=== PATIENT | female | born 1945 | race Caucasian/White ===

== ENCOUNTER → 2016-10-27 | Outpatient (CLI) | payer MEDICARE, MEDICAID | END | disposition home or self-care (01) | LOC: CFH 10:01 | PROVIDERS: ATTEND Internal Medicine | DX: E04.1 Nontoxic single thyroid nodule (principal) | CPT/HCPCS: 76536 ==

== ENCOUNTER 2016-11-16 09:06 | Emergency (ER) | payer MEDICARE, MEDICAID ==
[~2016-11-16] VITALS: Ht 165.1 cm; Wt 126.6 kg
[2016-11-16] MEDS ORDERED: PHENAZOPYRIDINE 200 MG TABLET PO ONE (09:30)
[2016-11-16 09:55] LABS: ASPARTATE AMINO TRANSFERASE 16 U/L (15-37); BLOOD UREA NITROGEN 17 mg/dL (7-18)
[2016-11-16] MEDS ORDERED: PHENAZOPYRIDINE 200 MG TABLET ONE (10:19)
[2016-11-16 11:59] VITALS: BP 177/73
[2016-11-16] MEDS ORDERED: OMNIPAQUE 350 MG/ML, 100ML BOTTLE ONE (12:40)
[2016-11-16] MEDS ORDERED: FLUCONAZOLE 100 MG TABLET PO ONE (13:00)
== END 2016-11-16 13:46 | disposition home or self-care (01) ==
LOC: ED 13:40
DX: R30.0 Dysuria (principal); I10 Essential (primary) hypertension; Z90.710 Acquired absence of both cervix and uterus; Z98.51 Tubal ligation status
CPT/HCPCS: 36415; 74177; 80053; 81001; 85025; 99285; Q9967

== ENCOUNTER → 2017-03-07 | Outpatient (CLI) | payer MEDICARE, MEDICAID ==
[2017-03-07 08:15] LABS: PATH.CAST-FLAG NOT PRESENT; SPERM-FLAG NOT PRESENT; SRC-FLAG NOT PRESENT; XTAL-FLAG NOT PRESENT; YLC-FLAG NOT PRESENT
[2017-03-07 08:16] LABS: ASPARTATE AMINO TRANSFERASE 16 U/L (15-37); BLOOD UREA NITROGEN 21 mg/dL (7-18)
== END | disposition home or self-care (01) ==
LOC: LAB 07:42
PROVIDERS: ATTEND Internal Medicine
DX: E03.9 Hypothyroidism, unspecified (principal); E04.2 Nontoxic multinodular goiter; B35.1 Tinea unguium; E11.21 Type 2 diabetes mellitus with diabetic nephropathy; E55.9 Vitamin D deficiency, unspecified
CPT/HCPCS: 80053; 80061; 81001; 82306; 83036

== ENCOUNTER → 2017-04-13 | Outpatient (CLI) | payer MEDICARE, MEDICAID ==
[~2017-04-13] MED LIST: LIDOCAINE 1%, 20ML ONE
== END | disposition home or self-care (01) ==
LOC: RAD 12:15
PROVIDERS: ATTEND Internal Medicine Endocrinology, Diabetes & Metabolism
DX: E04.2 Nontoxic multinodular goiter (principal)
CPT/HCPCS: 76942; 88172; 88173; J3490

== ENCOUNTER → 2018-03-20 | Outpatient (CLI) | payer MEDICARE, MEDICAID | END | disposition home or self-care (01) | LOC: RAD 09:48 | PROVIDERS: ATTEND Internal Medicine | DX: R09.02 Hypoxemia (principal) | CPT/HCPCS: 71046 ==

== ENCOUNTER → 2018-04-13 | Outpatient (CLI) | payer MEDICARE, MEDICAID | END | disposition home or self-care (01) | LOC: CFH 10:15 | PROVIDERS: ATTEND Internal Medicine | DX: Z13.820 Encounter for screening for osteoporosis (principal); M85.88 Other specified disorders of bone density and structure, other site | CPT/HCPCS: 77080 ==

== ENCOUNTER → 2018-05-10 | Outpatient (CLI) | payer MEDICARE, MEDICAID | END | disposition home or self-care (01) | LOC: CFH 09:33 | PROVIDERS: ATTEND Internal Medicine | DX: E04.1 Nontoxic single thyroid nodule (principal) | CPT/HCPCS: 76536 ==

== ENCOUNTER → 2018-06-28 | Outpatient (CLI) | payer MEDICARE, MEDICAID ==
[~2018-06-28] MED LIST changes: -LIDOCAINE 1%, 20ML ONE; +LIDOCAINE-MPF 1%, 5ML ONE
== END | disposition home or self-care (01) ==
LOC: RAD 09:25
PROVIDERS: ATTEND Internal Medicine
DX: E04.1 Nontoxic single thyroid nodule (principal)
CPT/HCPCS: 10022; 76942; 88172; 88173

== ENCOUNTER 2019-07-03 06:18 | Day surgery (SDC) | payer MEDICARE, MEDICAID ==
[2019-07-01 16:18] LABS: BASOPHILS # (AUTO) 0.07 x10^3/uL (0-0.1); BASOPHILS % (AUTO) 1 % (0-1); EOSINOPHILS # (AUTO) 0.24 x10^3/uL (0-0.4); EOSINOPHILS % (AUTO) 2 % (1-7); LYMPHOCYTES # (AUTO) 2.07 x10^3/uL (1-3.4); LYMPHOCYTES % (AUTO) 18 % (22-44); MD NO; MEAN CORPUSCULAR HEMOGLOBIN 28.1 pg (27.0-34.8); MEAN CORPUSCULAR HGB CONC 31.6 g/dL (32.4-35.8); MEAN CORPUSCULAR VOLUME 88.7 fL (80-100); MEAN PLATELET VOLUME 7.5 fL (7.4-10.4); MONOCYTES # (AUTO) 0.72 x10^3/uL (0.2-0.8); MONOCYTES % (AUTO) 6 % (2-9); NEUTROPHILS # (AUTO) 8.29 x10^3/uL (1.8-6.8); NEUTROPHILS % (AUTO) 73 % (42-75); PLATELET COUNT 424 x10^3/uL (130-400); RED BLOOD COUNT 4.88 x10^6/uL (3.82-5.3); RED CELL DISTRIBUTION WIDTH 15.5 % (9.6-15.2)
[2019-07-01 16:27] LABS: ALANINE AMINOTRANSFERASE 20 U/L (12-78); ALBUMIN 3.6 g/dL (3.4-5.0); ANION GAP 7 mmol/L (5-15); CALCIUM 9.4 mg/dL (8.5-10.1); CHLORIDE 109 mmol/L (98-107); CREATININE 1.03 mg/dL (0.55-1.02)
[2019-07-01 16:30] LABS: ALKALINE PHOSPHATASE 133 U/L (45-117); BILIRUBIN,TOTAL 0.6 mg/dL (0.2-1.0); TOTAL PROTEIN 8.2 g/dL (6.4-8.2)
[~2019-07-03] VITALS: Ht 163.8 cm; Wt 128.0 kg
[~2019-07-03 06:18] MED LIST changes: +AMLO10TA8 PO; +LEVO75TA5 PO; -LIDOCAINE-MPF 1%, 5ML ONE; +METF500T17 PO; +METO-95 PO; +SPIR25TA5 PO; +atorvastatin PO; +vitamin D PO
[2019-07-03 06:58] VITALS: BP 186/73
[2019-07-03] MEDS ORDERED: LACTATED RINGERS 1,000 ML IV SCH (06:58)
[2019-07-03] MEDS ORDERED: ACETAMINOPHEN 325 MG TABLET PO PRN (07:30)
[2019-07-03] MEDS ORDERED: ONDANSETRON 2MG/ML, 2ML IV PRN (07:30)
[2019-07-03] MEDS ORDERED: hydrALAzine 20 MG/ML, 1ML IV PRN (07:30)
[2019-07-03] MEDS ORDERED: KETOROLAC 30 MG/1 ML IV PRN (07:30)
[2019-07-03] MEDS ORDERED: FENTANYL PF 100 MCG/2ML IV PRN (07:30)
[2019-07-03] MEDS ORDERED: PROPOFOL 10 MG/ML, 20ML ONE (07:38)
[2019-07-03] MEDS ORDERED: METOPROLOL 1 MG/ML, 5ML ONE (07:38)
== END 2019-07-03 09:05 | disposition home or self-care (01) ==
LOC: OUT 06:18
PROVIDERS: ATTEND Internal Medicine
DX: R19.5 Other fecal abnormalities (principal); K63.5 Polyp of colon; K57.30 Diverticulosis of large intestine without perforation or abscess without bleeding; J44.9 Chronic obstructive pulmonary disease, unspecified; G47.33 Obstructive sleep apnea (adult) (pediatric); E03.9 Hypothyroidism, unspecified; E11.9 Type 2 diabetes mellitus without complications; I10 Essential (primary) hypertension; E78.5 Hyperlipidemia, unspecified; E66.01 Morbid (severe) obesity due to excess calories; Z86.010 Personal history of colon polyps; Z99.81 Dependence on supplemental oxygen
CPT/HCPCS: 36415; 45378; 80053; 82962; 85025; 93005; J2704; J7120

== ENCOUNTER 2019-08-02 09:48 | Outpatient (CLI) | payer MEDICARE, MEDICAID | END 2019-08-02 23:59 | disposition home or self-care (01) | LOC: CFH 09:48 | PROVIDERS: ATTEND Internal Medicine | DX: N63.11 Unspecified lump in the right breast, upper outer quadrant (principal) | CPT/HCPCS: 76642; 77065; G0279; 77063 ==

== ENCOUNTER 2019-08-09 07:37 | Outpatient (CLI) | payer MEDICARE, MEDICAID ==
[2019-08-09] MEDS ORDERED: LIDOCAINE 1%, 20ML ONE (08:00)
[2019-08-09] MEDS ORDERED: LIDOCAINE 1%-EPI 1:100K, 20ML ONE (08:00)
[2019-08-09] MEDS ORDERED: SODIUM BICARBONATE 4.2%, 5ML ONE (08:00)
== END 2019-08-09 23:59 | disposition home or self-care (01) ==
LOC: CFH 07:37
PROVIDERS: ATTEND Internal Medicine
DX: N63.10 Unspecified lump in the right breast, unspecified quadrant (principal); C50.911 Malignant neoplasm of unspecified site of right female breast
CPT/HCPCS: 19083; 77065; 88305; 88341; 88342; 88360; J3490

== ENCOUNTER → 2019-09-12 | Outpatient (CLI) | payer MEDICARE, MEDICAID ==
[~2019-09-12] MED LIST changes: +LIDOCAINE 1%, 20ML ONE; +LIDOCAINE 1%-EPI 1:100K, 20ML ONE; +SODIUM BICARBONATE 4.2%, 5ML ONE
== END | disposition home or self-care (01) ==
LOC: CFH 09:55
PROVIDERS: ATTEND Surgery
DX: C50.411 Malignant neoplasm of upper-outer quadrant of right female breast (principal); E11.9 Type 2 diabetes mellitus without complications; E78.5 Hyperlipidemia, unspecified; E03.9 Hypothyroidism, unspecified; I10 Essential (primary) hypertension; Z17.0 Estrogen receptor positive status [ER+]; Z79.84 Long term (current) use of oral hypoglycemic drugs; Z79.890 Hormone replacement therapy; Z79.899 Other long term (current) drug therapy
CPT/HCPCS: 19285; 77065; J3490

== ENCOUNTER 2019-10-28 10:07 | Outpatient (CLI) | payer MEDICARE, MEDICAID ==
[~2019-10-28 10:07] MED LIST changes: -LIDOCAINE 1%, 20ML ONE; -LIDOCAINE 1%-EPI 1:100K, 20ML ONE; -SODIUM BICARBONATE 4.2%, 5ML ONE
[2019-10-28] MEDS ORDERED: LIDOCAINE-MPF 1%, 5ML ONE (10:40)
== END 2019-10-28 23:59 | disposition home or self-care (01) ==
LOC: RAD 10:07
PROVIDERS: ATTEND Surgery
DX: Z02.9 Encounter for administrative examinations, unspecified (principal)
CPT/HCPCS: 38792; A9541

== ENCOUNTER 2019-10-28 10:15 | Day surgery (SDC) | payer MEDICARE, MEDICAID ==
[~2019-10-28] VITALS: Ht 162.6 cm; Wt 126.3 kg
[2019-10-28 10:50] VITALS: BP 180/93
[2019-10-28] MEDS ORDERED: ISOSULFAN BLUE 10 MG/ML, 5ML IV ONE (10:54)
[2019-10-28] MEDS ORDERED: BUPIVACAINE/PF-EPI 0.5% 1:200K ONE (10:54)
[2019-10-28] MEDS ORDERED: LACTATED RINGERS 1,000 ML IV SCH ×2 (11:17→11:52)
[2019-10-28] MEDS ORDERED: CHLORHEXIDINE 15 ML UDC ONE (12:10)
[2019-10-28] MEDS ORDERED: MIDAZOLAM 1 MG/ML, 2ML ONE (12:18)
[2019-10-28] MEDS ORDERED: FENTANYL PF 250 MCG/5ML ONE (12:18)
[2019-10-28 12:33] LABS: ALBUMIN 3.4 g/dL (3.4-5.0); ANION GAP 4 mmol/L (5-15); CALCIUM 9.4 mg/dL (8.5-10.1); CHLORIDE 111 mmol/L (98-107)
[2019-10-28 12:37] LABS: ALANINE AMINOTRANSFERASE 18 U/L (12-78); ALKALINE PHOSPHATASE 139 U/L (45-117); BILIRUBIN,TOTAL 0.8 mg/dL (0.2-1.0); TOTAL PROTEIN 7.6 g/dL (6.4-8.2)
[2019-10-28] MEDS ORDERED: DEXAMETHASONE 4 MG/ML, 1ML ONE (13:15)
[2019-10-28] MEDS ORDERED: PROPOFOL 10 MG/ML, 20ML ONE (13:15)
[2019-10-28] MEDS ORDERED: ROCURONIUM 10 MG/ML,10ML ONE (13:15)
[2019-10-28] MEDS ORDERED: SUGAMMADEX 200 MG/2 ML IVPush ONE (13:15)
[2019-10-28] MEDS ORDERED: CEFAZOLIN 1,000 MG ONE (13:15)
[2019-10-28] MEDS ORDERED: ONDANSETRON 2MG/ML, 2ML ONE (13:15)
[2019-10-28] MEDS ORDERED: SUCCINYLCHOLINE 20 MG/ML, 10ML ONE (13:15)
[2019-10-28] MEDS ORDERED: HALOPERIDOL 5 MG/ML IV PRN (15:00)
[2019-10-28] MEDS ORDERED: DIAZEPAM 5 MG/ML, 2ML IVPush PRN (15:00)
[2019-10-28] MEDS ORDERED: ACETAMINOPHEN 325 MG TABLET PO PRN (15:00)
[2019-10-28] MEDS ORDERED: OXYcodone 5 MG/5 ML ORAL.SOL UDC PO PRN (15:00)
[2019-10-28] MEDS ORDERED: MIDAZOLAM 1 MG/ML, 2ML IV PRN (15:00)
[2019-10-28] MEDS ORDERED: PROMETHAZINE 12.5 MG SUPP PR PRN (15:00)
[2019-10-28] MEDS ORDERED: EPHEDRINE 50 MG/ML, 1ML IVPush PRN (15:00)
[2019-10-28] MEDS ORDERED: ALBUTEROL SULFATE 2.5 MG/3 ML NPPB PRN (15:00)
[2019-10-28] MEDS ORDERED: PROMETHAZINE 25 MG/ML, 1ML IV PRN (15:00)
[2019-10-28] MEDS ORDERED: ONDANSETRON 2MG/ML, 2ML IV PRN (15:00)
[2019-10-28] MEDS ORDERED: MEPERIDINE/PF 25MG/ML,1ML IVPush ONE (15:00)
[2019-10-28] MEDS ORDERED: LABETALOL 5MG/ML, 20ML IV PRN (15:00)
[2019-10-28] MEDS ORDERED: hydrALAzine 20 MG/ML, 1ML IV PRN (15:00)
[2019-10-28] MEDS ORDERED: ONDANSETRON ODT 8 MG PO PRN (15:00)
[2019-10-28] MEDS ORDERED: FENTANYL PF 100 MCG/2ML ONE (15:46)
[2019-10-28] MEDS ORDERED: HYDROmorphone 1 MG/ML, 1ML INJ ONE (15:46)
[2019-10-28] MEDS ORDERED: OXYcodone 5 MG/5 ML ORAL.SOL UDC ONE (15:47)
[2019-10-28] MEDS ORDERED: HALOPERIDOL 5 MG/ML ONE (15:56)
[2019-10-28] MEDS: FENTANYL PF 100 MCG/2ML IV PRN ×2 (15:56→16:16)
[2019-10-28] MEDS: HYDROmorphone 1 MG/ML, 1ML INJ IVPush PRN ×2 (16:11→16:18)
[2019-10-28] MEDS ORDERED: hydrALAzine 20 MG/ML, 1ML ONE (16:26)
[2019-10-28] MEDS ORDERED: HYDROcodone/APAP 5/325 TABLET PO PRN (20:00)
[2019-10-28] MEDS ORDERED: MORPHINE SULFATE 4 MG/ML, 1ML IVPush PRN (20:00)
== END 2019-10-28 22:23 | disposition home or self-care (01) ==
LOC: OR 10:15 → 4NE 19:28 → OR 22:23
PROVIDERS: ATTEND Surgery
DX: C50.411 Malignant neoplasm of upper-outer quadrant of right female breast (principal); N65.1 Disproportion of reconstructed breast; E11.9 Type 2 diabetes mellitus without complications; I10 Essential (primary) hypertension; E78.5 Hyperlipidemia, unspecified; E03.9 Hypothyroidism, unspecified; E66.01 Morbid (severe) obesity due to excess calories; Z17.0 Estrogen receptor positive status [ER+]; Z68.42 Body mass index [BMI] 45.0-49.9, adult; Z79.84 Long term (current) use of oral hypoglycemic drugs; Z79.890 Hormone replacement therapy; Z79.899 Other long term (current) drug therapy
CPT/HCPCS: 19301; 19318; 36415; 38525; 38792; 76098; 80053; 82962; 88305; 88307; 88341; 88342; 93005; A9541; C1729; J0330; J0360; J0690; J1100; J1170; J1630; J2250; J2405; J2704; J3010; J7120; G0378

== ENCOUNTER 2019-12-18 10:16 | Outpatient (CLI) | payer MEDICARE, MEDICAID ==
[2019-12-29] MEDS ORDERED: LEVO88TA4 PO (10:33)
[2019-12-29] MEDS ORDERED: METF10007 PO (14:04)
[2019-12-29] MEDS ORDERED: METO-95 PO ×2 (14:04)
[2019-12-29] MEDS ORDERED: DOXY100C2 PO (14:04)
[2019-12-29] MEDS ORDERED: AMOX-291 PO (14:04)
[2019-12-29] MEDS ORDERED: CARV12.52 PO ×2 (14:06)
[2019-12-29] MEDS ORDERED: INSU100I11 SQ-INSULIN (14:27)
[2019-12-31] MEDS ORDERED: ATOR-2 PO (11:48)
[2019-12-31] MEDS ORDERED: METO-95 PO (11:48)
[2019-12-31] MEDS ORDERED: LINE600T15 PO (11:54)
[2019-12-31] MEDS ORDERED: METF500T17 PO ×2 (11:54)
== END 2019-12-18 23:59 | disposition home or self-care (01) ==
LOC: CVU 10:16
PROVIDERS: ATTEND Internal Medicine Hematology & Oncology
DX: C50.111 Malignant neoplasm of central portion of right female breast (principal); I05.1 Rheumatic mitral insufficiency
CPT/HCPCS: 93306

== ENCOUNTER 2020-03-04 09:34 | Inpatient (IN) | payer MEDICARE, MEDICAID ==
[~2020-03-04] VITALS: Ht 162.6 cm; Wt 105.2 kg
[~2020-03-04 09:34] MED LIST changes: +AMOX-291 PO; +ATOR-2 PO; +CARV12.52 PO; +DOXY100C2 PO; +INSU100I11 SQ-INSULIN; +LEVO88TA4 PO; +LINE600T15 PO; +METF10007 PO
[2020-03-04] MEDS ORDERED: SODIUM CHLORIDE FLUSH 10ML SYR IVF ONE (10:00)
[2020-03-04] MEDS ORDERED: SODIUM CHLORIDE 0.9% 1,000ML IVBOLUS ONE (10:00)
--- NOTE | 2020-03-04 11:00 | NUR ---
PT VOMITED ONCE AT NIGHT AND HAS GENERAL MALIASE. STATES SHE GOT CHEMO MONDAY
[2020-03-04 11:09] LABS: MEAN CORPUSCULAR HEMOGLOBIN 28.5 pg (27.0-34.8); MEAN CORPUSCULAR HGB CONC 31.3 g/dL (32.4-35.8); MEAN CORPUSCULAR VOLUME 91.2 fL (80-100); MEAN PLATELET VOLUME 7.5 fL (7.4-10.4); PLATELET COUNT 471 x10^3/uL (130-400); RED BLOOD COUNT 4.18 x10^6/uL (3.82-5.3); RED CELL DISTRIBUTION WIDTH 19.9 % (9.6-15.2)
[2020-03-04 11:16] LABS: ALANINE AMINOTRANSFERASE 14 U/L (12-78); ALBUMIN 2.7 g/dL (3.4-5.0); ANION GAP 8 mmol/L (5-15); CALCIUM 9.4 mg/dL (8.5-10.1); CHLORIDE 108 mmol/L (98-107); CREATININE 0.81 mg/dL (0.55-1.02)
[2020-03-04 11:18] LABS: ALKALINE PHOSPHATASE 109 U/L (45-117); BILIRUBIN,TOTAL 0.8 mg/dL (0.2-1.0); TOTAL PROTEIN 7.3 g/dL (6.4-8.2)
--- NOTE | 2020-03-04 11:23 | NUR ---
CATH SPECIMEN URINE OBTAINED. FLUIDS CONTINUE TO INFUSE. PT RESTING WITH EYES CLOSED
[2020-03-04 11:25] LABS: BASOPHILS # (AUTO) 0.04 x10^3/uL (0-0.1); BASOPHILS % (AUTO) 0 % (0-1); EOSINOPHILS # (AUTO) 0.04 x10^3/uL (0-0.4); EOSINOPHILS % (AUTO) 0 % (1-7); LYMPHOCYTES # (AUTO) 0.88 x10^3/uL (1-3.4); LYMPHOCYTES % (AUTO) 7 % (22-44); MD SCAN; MONOCYTES # (AUTO) 0.82 x10^3/uL (0.2-0.8); MONOCYTES % (AUTO) 7 % (2-9); NEUTROPHILS # (AUTO) 10.63 x10^3/uL (1.8-6.8); NEUTROPHILS % (AUTO) 86 % (42-75)
[2020-03-04 11:45] LABS: MICROSCOPIC INDICATED
--- NOTE | 2020-03-04 13:16 | NUR ---
TASK RN: PT ABLE TO PASS PO CHALLENGE DRANK 90ML OF WATER. ASSISTED PT TO RESTROOM, + SOB WITH ACTIVITY, DESATURATED TO 85% RA. PLACED ON 3LNC, O2 SAT 95% NOW. FALL PRECAUTIONS IN PLACE.
--- NOTE | 2020-03-04 13:35 | NUR ---
AT BEDSIDE RE-EXAMINING PT. OXYGEN TURNED OFF AND PT O2 SATURATION 84-86 PERCENT WHILE AT REST. PLACED BACK ON OXGEN. ORDER FOR CTA BY
[2020-03-04] MEDS ORDERED: OMNIPAQUE 350 MG/ML, 100ML BOTTLE ONE (14:08)
--- NOTE | 2020-03-04 14:26 | NUR ---
TO CT VIA [facility]
[2020-03-04] MEDS ORDERED: APIXABAN 5 MG TABLET ONE (14:52)
--- NOTE | 2020-03-04 15:00 | NUR ---
HOSPITALIST AT BEDSIDE
[2020-03-04] MEDS ORDERED: LISI2.5T PO (15:02)
[2020-03-04] MEDS ORDERED: LABETALOL 5MG/ML, 20ML IVPush PRN (15:30)
[2020-03-04] MEDS ORDERED: LACTATED RINGERS 1,000 ML IV SCH (15:30)
[2020-03-04] MEDS ORDERED: MELATONIN 5 MG TABLET PO PRN (15:30)
[2020-03-04] MEDS ORDERED: DOCUSATE 100 MG CAPSULE PO PRN (15:30)
[2020-03-04] MEDS ORDERED: SODIUM CHLORIDE FLUSH 10ML SYR IVF PRN (15:30)
[2020-03-04] MEDS ORDERED: ONDANSETRON 2MG/ML, 2ML IVPush PRN (15:30)
[2020-03-04] MEDS ORDERED: hydrALAzine 20 MG/ML, 1ML IVPush PRN (15:30)
[2020-03-04] MEDS ORDERED: ACETAMINOPHEN 325 MG TABLET PO PRN (15:30)
--- NOTE | 2020-03-04 15:43 | NUR ---
REPORT TO MONIK MYERS
[2020-03-04] MEDS: INSULIN LISPRO 100 UNITS/ML, PEN SQ-INSULIN SCH ×2 (16:00→23:03)
[2020-03-04] MEDS ORDERED: APIXABAN 5 MG TABLET PO ONE (16:00)
[2020-03-04 16:16] LABS: FREE T4 (FREE THYROXINE) 1.18 ng/dL (0.76-1.46); TROPONIN I < 0.015 ng/mL (0.000-0.045)
[2020-03-04] MEDS ORDERED: SODIUM PHOSPHATE 20 MMOL in SODIUM CHLORIDE 0.9% 500 ML IV ONE (16:30)
[2020-03-04] MEDS ORDERED: MAGNESIUM SULFATE PMX 4GM/100M 100 ML IV ONE (16:30)
[2020-03-04] MEDS: CEFTRIAXONE PMX 1GM/50ML 50 ML IV SCH (16:45)
[2020-03-04] MEDS: METOPROLOL SUCCINATE 100 MG TAB.ER.24H PO SCH (16:52)
[2020-03-04] MEDS: LISINOPRIL 20 MG TABLET PO SCH (16:52)
[2020-03-04] MEDS: DOXYCYCLINE 100 MG in DEXTROSE 5% 250 ML IV SCH (18:00)
[2020-03-04 18:58] VITALS: BP 172/80
[2020-03-04] MEDS: APIXABAN 5 MG TABLET PO SCH (20:31)
[2020-03-04] MEDS ORDERED: LISINOPRIL 20 MG TABLET PO SCH (21:00)
[2020-03-04 22:08] LABS: TROPONIN I < 0.015 ng/mL (0.000-0.045)
[2020-03-04 23:07] VITALS: BP 160/74
[2020-03-05 01:37] VITALS: BP 174/74
[2020-03-05] MEDS: DOXYCYCLINE 100 MG in DEXTROSE 5% 250 ML IV SCH ×2 (03:26→14:54)
[2020-03-05 03:29] VITALS: BP 181/84
[2020-03-05 04:30] VITALS: BP 150/72
[2020-03-05 05:22] LABS: BASOPHILS # (AUTO) 0.03 x10^3/uL (0-0.1); BASOPHILS % (AUTO) 0 % (0-1); EOSINOPHILS # (AUTO) 0.09 x10^3/uL (0-0.4); EOSINOPHILS % (AUTO) 1 % (1-7); LYMPHOCYTES # (AUTO) 1.19 x10^3/uL (1-3.4); LYMPHOCYTES % (AUTO) 10 % (22-44); MD NO; MEAN CORPUSCULAR HEMOGLOBIN 28.7 pg (27.0-34.8); MEAN CORPUSCULAR HGB CONC 31.6 g/dL (32.4-35.8); MEAN CORPUSCULAR VOLUME 90.9 fL (80-100); MEAN PLATELET VOLUME 7.7 fL (7.4-10.4); MONOCYTES # (AUTO) 1.02 x10^3/uL (0.2-0.8); MONOCYTES % (AUTO) 9 % (2-9); NEUTROPHILS # (AUTO) 9.68 x10^3/uL (1.8-6.8); NEUTROPHILS % (AUTO) 81 % (42-75); PLATELET COUNT 453 x10^3/uL (130-400); RED BLOOD COUNT 3.85 x10^6/uL (3.82-5.3); RED CELL DISTRIBUTION WIDTH 19.7 % (9.6-15.2)
[2020-03-05 05:34] LABS: CHLORIDE 109 mmol/L (98-107)
[2020-03-05 05:41] LABS: ANION GAP 7 mmol/L (5-15); CALCIUM 8.1 mg/dL (8.5-10.1); CREATININE 0.73 mg/dL (0.55-1.02)
[2020-03-05] MEDS: INSULIN LISPRO 100 UNITS/ML, PEN SQ-INSULIN SCH ×4 (07:28→20:16)
[2020-03-05] MEDS: APIXABAN 5 MG TABLET PO SCH ×2 (08:05→20:17)
[2020-03-05] MEDS: PANTOPRAZOLE 40MG TABLET PO SCH (08:05)
[2020-03-05] MEDS: ATORVASTATIN 80 MG TABLET PO SCH (08:06)
[2020-03-05] MEDS: LEVOTHYROXINE 88 MCG TABLET PO SCH (08:06)
[2020-03-05] MEDS: AMLODIPINE 5 MG TABLET PO SCH ×2 (08:06→20:17)
[2020-03-05] MEDS: LISINOPRIL 20 MG TABLET PO SCH ×2 (08:06→20:17)
[2020-03-05] MEDS: METOPROLOL SUCCINATE 100 MG TAB.ER.24H PO SCH (08:06)
[2020-03-05 08:07] VITALS: BP 154/79
[2020-03-05] MEDS ORDERED: SPIRONOLACTONE 25 MG TABLET PO SCH (09:00)
[2020-03-05] MEDS ORDERED: METOPROLOL SUCCINATE 100 MG TAB.ER.24H PO SCH (09:00)
[2020-03-05 12:48] VITALS: BP 121/73
[2020-03-05] MEDS: CEFTRIAXONE PMX 1GM/50ML 50 ML IV SCH (16:12)
[2020-03-05 18:47] VITALS: BP 131/73
[2020-03-06 00:48] VITALS: BP 150/72
[2020-03-06] MEDS: DOXYCYCLINE 100 MG in DEXTROSE 5% 250 ML IV SCH (02:45)
[2020-03-06 06:16] LABS: BASOPHILS # (AUTO) 0.03 x10^3/uL (0-0.1); BASOPHILS % (AUTO) 0 % (0-1); EOSINOPHILS # (AUTO) 0.11 x10^3/uL (0-0.4); EOSINOPHILS % (AUTO) 1 % (1-7); LYMPHOCYTES # (AUTO) 2.15 x10^3/uL (1-3.4); LYMPHOCYTES % (AUTO) 19 % (22-44); MD NO; MEAN CORPUSCULAR HEMOGLOBIN 29.3 pg (27.0-34.8); MEAN CORPUSCULAR HGB CONC 32.2 g/dL (32.4-35.8); MEAN CORPUSCULAR VOLUME 90.8 fL (80-100); MEAN PLATELET VOLUME 7.8 fL (7.4-10.4); MONOCYTES # (AUTO) 1.14 x10^3/uL (0.2-0.8); MONOCYTES % (AUTO) 10 % (2-9); NEUTROPHILS # (AUTO) 7.87 x10^3/uL (1.8-6.8); NEUTROPHILS % (AUTO) 70 % (42-75); PLATELET COUNT 483 x10^3/uL (130-400); RED CELL DISTRIBUTION WIDTH 20.1 % (9.6-15.2)
[2020-03-06] MEDS: INSULIN LISPRO 100 UNITS/ML, PEN SQ-INSULIN SCH ×2 (07:29→11:24)
[2020-03-06 07:36] VITALS: BP 146/77
[2020-03-06] MEDS: LEVOTHYROXINE 88 MCG TABLET PO SCH (07:50)
[2020-03-06] MEDS: ATORVASTATIN 80 MG TABLET PO SCH (07:50)
[2020-03-06] MEDS: LISINOPRIL 20 MG TABLET PO SCH (07:50)
[2020-03-06] MEDS: APIXABAN 5 MG TABLET PO SCH (07:50)
[2020-03-06] MEDS: AMLODIPINE 5 MG TABLET PO SCH (07:50)
[2020-03-06] MEDS: PANTOPRAZOLE 40MG TABLET PO SCH (07:50)
[2020-03-06] MEDS: METOPROLOL SUCCINATE 100 MG TAB.ER.24H PO SCH (07:51)
[2020-03-06 08:01] VITALS: BP 127/72
[2020-03-06] MEDS ORDERED: AMLO-150 PO (08:29)
[2020-03-06] MEDS ORDERED: APIX5TAB PO ×2 (08:29)
[2020-03-06] MEDS ORDERED: DOXY100T23 PO (08:29)
[2020-03-06] MEDS ORDERED: AMOX1TAB61 PO (08:29)
[2020-03-06 12:56] VITALS: BP 135/81
[2020-03-06] MEDS ORDERED: AMOXICILLIN/CLAV 500-125MG TABLET ONE (13:36)
[2020-03-06] MEDS ORDERED: AMOXICILLIN/CLAV 500-125MG TABLET PO SCH (14:00)
== END 2020-03-06 15:44 | disposition home or self-care (01) | DRG 175 ==
LOC: ED 11:32 → SUATTDRO 14:35 → EDIP 15:16 → 4WST 15:56 → DCLOUNGE 03-06 15:36
PROVIDERS: ADMIT Hospitalist; ATTEND Hospitalist
DX: I26.99 Other pulmonary embolism without acute cor pulmonale (principal); J18.9 Pneumonia, unspecified organism; D68.59 Other primary thrombophilia; I50.30 Unspecified diastolic (congestive) heart failure; I27.20 Pulmonary hypertension, unspecified; R91.8 Other nonspecific abnormal finding of lung field; D72.829 Elevated white blood cell count, unspecified; R31.29 Other microscopic hematuria; C50.919 Malignant neoplasm of unspecified site of unspecified female breast; I11.0 Hypertensive heart disease with heart failure; E11.9 Type 2 diabetes mellitus without complications; E03.9 Hypothyroidism, unspecified; E78.5 Hyperlipidemia, unspecified; Z87.442 Personal history of urinary calculi; Z90.710 Acquired absence of both cervix and uterus; Z90.49 Acquired absence of other specified parts of digestive tract
CPT/HCPCS: 36415; 71045; 71275; 80048; 80053; 81001; 82962; 83690; 83735; 84100; 84145; 84439; 84443; 84484; 85025; 87040; 93005; 96360; G0378; J0696; J7060; Q9967; J0360; J1815; J3475; J7030; J7040; J7120

== ENCOUNTER → 2020-04-21 | Outpatient (CLI) | payer MEDICARE, MEDICAID ==
[~2020-04-21] MED LIST changes: +AMLO-150 PO; +AMOX1TAB61 PO; +APIX5TAB PO; +DOXY100T23 PO; +LISI2.5T PO; +OMNIPAQUE 350 MG/ML, 75ML BOTTLE ONE; +POTA20TA89 PO
== END | disposition home or self-care (01) ==
LOC: CFH 09:41
PROVIDERS: ATTEND Internal Medicine Hematology & Oncology
DX: C50.111 Malignant neoplasm of central portion of right female breast (principal); R91.8 Other nonspecific abnormal finding of lung field; Z79.899 Other long term (current) drug therapy
CPT/HCPCS: 71260; Q9967

== ENCOUNTER → 2020-06-26 | Outpatient (CLI) | payer MEDICARE, MEDICAID ==
[~2020-06-26] MED LIST changes: +AMLO-211 PO; -AMLO10TA8 PO; -OMNIPAQUE 350 MG/ML, 75ML BOTTLE ONE
== END | disposition home or self-care (01) ==
LOC: ROC 07:53
PROVIDERS: ATTEND Radiology Radiation Oncology
DX: C50.211 Malignant neoplasm of upper-inner quadrant of right female breast (principal); E78.5 Hyperlipidemia, unspecified; E03.9 Hypothyroidism, unspecified; I13.0 Hypertensive heart and chronic kidney disease with heart failure and stage 1 through stage 4 chronic kidney disease, or unspecified chronic kidney disease; I50.30 Unspecified diastolic (congestive) heart failure; N18.9 Chronic kidney disease, unspecified; Z79.01 Long term (current) use of anticoagulants; Z90.49 Acquired absence of other specified parts of digestive tract; Z17.0 Estrogen receptor positive status [ER+]; Z90.710 Acquired absence of both cervix and uterus; Z79.84 Long term (current) use of oral hypoglycemic drugs; Z79.899 Other long term (current) drug therapy
CPT/HCPCS: G0463

== ENCOUNTER → 2020-08-20 | Outpatient (CLI) | payer MEDICARE, MEDICAID | END | disposition home or self-care (01) | LOC: ROC 09:10 | PROVIDERS: ATTEND Radiology Radiation Oncology | DX: C50.211 Malignant neoplasm of upper-inner quadrant of right female breast (principal); I13.0 Hypertensive heart and chronic kidney disease with heart failure and stage 1 through stage 4 chronic kidney disease, or unspecified chronic kidney disease; E11.22 Type 2 diabetes mellitus with diabetic chronic kidney disease; N18.9 Chronic kidney disease, unspecified; I50.30 Unspecified diastolic (congestive) heart failure; E78.5 Hyperlipidemia, unspecified; E03.9 Hypothyroidism, unspecified; Z17.0 Estrogen receptor positive status [ER+]; Z79.01 Long term (current) use of anticoagulants; Z79.84 Long term (current) use of oral hypoglycemic drugs; Z90.49 Acquired absence of other specified parts of digestive tract; Z79.899 Other long term (current) drug therapy | CPT/HCPCS: G0463 ==

== ENCOUNTER → 2020-09-08 | Outpatient (CLI) | payer MEDICARE, MEDICAID | END | disposition home or self-care (01) | LOC: CFH 12:20 | PROVIDERS: ATTEND Radiology Radiation Oncology | DX: Z12.31 Encounter for screening mammogram for malignant neoplasm of breast (principal) | CPT/HCPCS: 77063; 77067 ==

== ENCOUNTER 2020-11-16 13:28 | Emergency (ER) | payer MEDICARE, MEDICAID ==
[~2020-11-16] VITALS: Ht 162.6 cm; Wt 122.6 kg
[~2020-11-16 13:28] MED LIST changes: -DOXY100C2 PO; +DOXY100C5 PO; -LISI2.5T PO; +LISI2.5T12 PO
--- NOTE | 2020-11-16 14:25 | NUR ---
PT STATES THAT SHE HAS A RED LUMP UNDER L ARM THAT HAS BEEN HURTING SINCE MONDAY. PT IS RECIEVING CHEMO FOR BREAST CANCER. LAST CHEMO LAST MONDAY. UP TO BATHROOM WITH STEADY GAIT WITH WALKER AND BACK TO BED. ATTACHED TO MONITORS. PT W/ HTN BP 210/107. AWARE. OTHER VSS. AWAITING ORDERS.
--- NOTE | 2020-11-16 14:54 | NUR ---
DR. MORRELL TO BEDSIDE FOR EVALUATION.
[2020-11-16] MEDS ORDERED: AMLODIPINE 5 MG TABLET ONE (15:24)
[2020-11-16] MEDS ORDERED: AMLODIPINE 5 MG TABLET PO ONE (15:30)
[2020-11-16 15:56] VITALS: BP 187/87
--- NOTE | 2020-11-16 15:57 | NUR ---
Patient/Caregiver given discharge instructions and they have confirmed that they understand the instructions. Patient ambulatory with steady gait.
[2020-11-16] MEDS ORDERED: MUPIROCIN CRM 2%, 15GM TP SCH (16:00)
== END 2020-11-16 15:58 | disposition home or self-care (01) ==
LOC: ED 15:53
DX: I10 Essential (primary) hypertension (principal); N63.32 Unspecified lump in axillary tail of the left breast; E11.9 Type 2 diabetes mellitus without complications; Z90.89 Acquired absence of other organs; Z90.710 Acquired absence of both cervix and uterus
CPT/HCPCS: 99283

== ENCOUNTER 2021-01-29 11:55 | Emergency (ER) | payer MEDICARE, MEDICAID ==
[~2021-01-29] VITALS: Ht 162.6 cm; Wt 110.0 kg
[~2021-01-29 11:55] MED LIST changes: +DOXY100C2 PO; -DOXY100C5 PO; +LISI2.5T PO; -LISI2.5T12 PO
--- NOTE | 2021-01-29 11:59 | NUR ---
REDD Rdz from PCP office for evaluation of elevated b/p and low o2 sat. Pt DM out of meds for several weeks. NKDA, no interventions prehospital j/j covid vaccine Pt placed on o2 2L NC sats up to 92-94%.
--- NOTE | 2021-01-29 12:13 | NUR ---
PT RESTING IN BED, PLACED ON MONITORS. PT DENIES C/C. PT STATES O2 USE AT NIGHT ONLY. PER EMS, PT RA O2 SAT 88%, NOTED TO BE 86% RA WHEN ARRIVED TO ER. PT O2 SAT >95% ON 2L CURRENTLY. PT STATES SOME INCREASED URINE FREQUENCY TODAY. AWAITING ERMD ASSESSMENT, CONT TO MONITOR.
[2021-01-29 12:55] LABS: BASOPHILS % (AUTO) 1 % (0-1); EOSINOPHILS % (AUTO) 1 % (1-7); LYMPHOCYTES % (AUTO) 15 % (22-44); MEAN CORPUSCULAR HEMOGLOBIN 28.6 pg (27.0-34.8); MEAN CORPUSCULAR HGB CONC 33.2 g/dL (32.4-35.8); MEAN PLATELET VOLUME 7.4 fL (7.4-10.4); MONOCYTES % (AUTO) 7 % (2-9); NEUTROPHILS % (AUTO) 76 % (42-75); PLATELET COUNT 362 x10^3/uL (130-400); RED BLOOD COUNT 4.78 x10^6/uL (3.82-5.3); RED CELL DISTRIBUTION WIDTH 16.6 % (9.6-15.2)
[2021-01-29 13:04] LABS: ALBUMIN 3.4 g/dL (3.4-5.0); CALCIUM 9.5 mg/dL (8.5-10.1); CREATININE 1.08 mg/dL (0.55-1.02)
[2021-01-29 13:07] LABS: TROPONIN I < 0.015 ng/mL (0.000-0.045)
[2021-01-29 13:14] LABS: ANION GAP 3 mmol/L (5-15); CHLORIDE 108 mmol/L (98-107)
--- NOTE | 2021-01-29 13:31 | NUR ---
PT OK FOR D/C PER ERMD. PT STATES SHE IS READY TO LEAVE RIGHT NOW, STATES DOES NOT WANT TO WAIT FOR PAPERWORK. PT GIVEN CRACKERS AND JUICE PRIOR TO D/C. PT HAS ALL OWN BELONGINGS UPON D/C.
[2021-01-29 13:33] VITALS: BP 170/89
== END 2021-01-29 13:35 | disposition home or self-care (01) ==
LOC: ED 12:22
DX: I10 Essential (primary) hypertension (principal); R07.89 Other chest pain; Z99.81 Dependence on supplemental oxygen; R94.31 Abnormal electrocardiogram [ECG] [EKG]; E11.9 Type 2 diabetes mellitus without complications; Z85.3 Personal history of malignant neoplasm of breast; Z90.89 Acquired absence of other organs; Z90.710 Acquired absence of both cervix and uterus
CPT/HCPCS: 36415; 71045; 80048; 82040; 84484; 85025; 93005; 99285

== ENCOUNTER 2021-01-31 10:17 | Emergency (ER) | payer MEDICARE, MEDICAID ==
[~2021-01-31] VITALS: Ht 162.6 cm; Wt 111.0 kg
--- NOTE | 2021-01-31 10:22 | NUR ---
PATIENT AMBULATED TO BATHROOM WITH WALKER TO LEAVE URINE SAMPLE.
--- NOTE | 2021-01-31 10:51 | NUR ---
PATIENT BACK FROM BATHROOM. ERMD AT BEDSIDE FOR EVALUATION.
--- NOTE | 2021-01-31 10:53 | NUR ---
BIB EMS WITH CHIEF C/O PAINFUL URINATION AND INCREASED FREQUENCY. PER EMS PATIENT HYPERTENSIVE EN ROUTE, 20 GAUGE IV STARTED LEFT HAND. NO INTERVENTIONS. PATIENT ONLY ABLE TO URINATE A SMALL AMOUNT, ERMD SCANNED BLADDER, BLADDER IS FULL, CATHETER TO BE PLACED. PATIENT'S BP 230/87, ERMD AWARE, OTHER VSS, CALL LIGHT WITHIN REACH.
[2021-01-31 11:34] LABS: BASOPHILS % (AUTO) 1 % (0-1); EOSINOPHILS % (AUTO) 2 % (1-7); LYMPHOCYTES % (AUTO) 15 % (22-44); MEAN CORPUSCULAR HEMOGLOBIN 28.4 pg (27.0-34.8); MEAN CORPUSCULAR HGB CONC 32.5 g/dL (32.4-35.8); MEAN PLATELET VOLUME 7.5 fL (7.4-10.4); MONOCYTES % (AUTO) 6 % (2-9); NEUTROPHILS % (AUTO) 77 % (42-75); PLATELET COUNT 355 x10^3/uL (130-400); RED BLOOD COUNT 4.89 x10^6/uL (3.82-5.3); RED CELL DISTRIBUTION WIDTH 16.4 % (9.6-15.2)
--- NOTE | 2021-01-31 11:40 | NUR ---
VASQUEZ CATHETER INSERTED, PATIENT TOLERATED WELL, URINE COLLECTED AND SENT TO LAB. CONNECTED TO MONITOR, PATIENT'S BP DOWN FROM 230/87 TO 186/77, OTHER VSS, DENIES PAIN, CALL LIGHT WITHIN REACH.
[2021-01-31] MEDS ORDERED: LOSA100T14 PO (11:44)
[2021-01-31] MEDS ORDERED: GLIM2TAB7 PO (11:44)
[2021-01-31 11:46] LABS: ALANINE AMINOTRANSFERASE 20 U/L (12-78); ALBUMIN 3.6 g/dL (3.4-5.0); ANION GAP 3 mmol/L (5-15); CALCIUM 9.6 mg/dL (8.5-10.1); CHLORIDE 110 mmol/L (98-107)
[2021-01-31 11:48] LABS: ALKALINE PHOSPHATASE 144 U/L (45-117); BILIRUBIN,TOTAL 1.4 mg/dL (0.2-1.0); TOTAL PROTEIN 7.8 g/dL (6.4-8.2)
[2021-01-31 12:03] LABS: MICROSCOPIC AUTO
--- NOTE | 2021-01-31 12:45 | NUR ---
PATIENT LAYING IN GURNEY WITH EYES CLOSED, RESP EVEN AND UNLABORED, CONNECTED TO MONITOR, VSS, CALL LIGHT WITHIN REACH. PATIENT UP FOR RECHECK.
[2021-01-31 14:39] VITALS: BP 196/84
--- NOTE | 2021-01-31 14:51 | NUR ---
IV removed with tip intact. Educated patient on beltrán catheter care and how to change bag, patient acknowledged understanding. Patient given discharge instructions and prescription and they have confirmed that they understand the instructions. Patient ambulatory with steady gait and use of walker. NAD, all questions answered appropriately, denies additional needs at this time. No personal belongings left in room after discharge.
== END 2021-01-31 14:52 | disposition home or self-care (01) ==
LOC: ED 12:22
DX: R33.9 Retention of urine, unspecified (principal); Z76.0 Encounter for issue of repeat prescription; I10 Essential (primary) hypertension; E11.9 Type 2 diabetes mellitus without complications; Z86.711 Personal history of pulmonary embolism; Z85.3 Personal history of malignant neoplasm of breast
CPT/HCPCS: 36415; 51702; 80053; 81001; 85025; 93005; 99284

== ENCOUNTER 2021-02-04 09:27 | Emergency (ER) | payer MEDICARE, MEDICAID ==
[~2021-02-04] VITALS: Ht 162.6 cm; Wt 111.9 kg
[~2021-02-04 09:27] MED LIST changes: +GLIM2TAB7 PO; +LOSA100T14 PO; +LOSARTAN 100 MG TAB PO ONE
--- NOTE | 2021-02-04 10:13 | NUR ---
Pt was seen at urologist yesterday when indwelling cath was removed, after being placed for acute urinary retention secondary to a UTI. Pt states she asked them to take it out early after 3 days. 1L of urine out after beltrán placed per policy. Tube clamped after 500cc to avoid bladder spasms then the other 500ccs drained. Urine sent to lab for UA. Pt states "I haven't taken any of my meds today" in response to BP. Pt medicated per MAR with home med. Will reassess in about 1 hour, giving med time to work. Pt expresses much more comfort after beltrán placement.
[2021-02-04 10:16] LABS: BASOPHILS % (AUTO) 1 % (0-1); EOSINOPHILS % (AUTO) 0 % (1-7); LYMPHOCYTES % (AUTO) 8 % (22-44); MEAN CORPUSCULAR HEMOGLOBIN 28.2 pg (27.0-34.8); MEAN CORPUSCULAR HGB CONC 32.6 g/dL (32.4-35.8); MEAN PLATELET VOLUME 7.5 fL (7.4-10.4); MONOCYTES % (AUTO) 5 % (2-9); NEUTROPHILS % (AUTO) 87 % (42-75); PLATELET COUNT 356 x10^3/uL (130-400); RED BLOOD COUNT 5.14 x10^6/uL (3.82-5.3); RED CELL DISTRIBUTION WIDTH 16.3 % (9.6-15.2)
[2021-02-04 10:25] LABS: MICROSCOPIC AUTO
[2021-02-04 10:34] LABS: ALBUMIN 3.6 g/dL (3.4-5.0); ANION GAP 8 mmol/L (5-15); CALCIUM 9.8 mg/dL (8.5-10.1); CHLORIDE 108 mmol/L (98-107); CREATININE 1.11 mg/dL (0.55-1.02)
[2021-02-04 10:53] VITALS: BP 203/102
--- NOTE | 2021-02-04 10:54 | NUR ---
MD Brooks back to bedside to update pt on POC including d/c. aware of BP.
== END 2021-02-04 11:17 | disposition home or self-care (01) ==
LOC: ED 10:28
DX: N30.01 Acute cystitis with hematuria (principal); R33.9 Retention of urine, unspecified; I10 Essential (primary) hypertension; E11.9 Type 2 diabetes mellitus without complications; Z85.3 Personal history of malignant neoplasm of breast; Z90.89 Acquired absence of other organs; Z90.710 Acquired absence of both cervix and uterus
CPT/HCPCS: 36415; 51702; 80048; 81001; 82040; 85025; 87086; 99284

== ENCOUNTER 2021-02-05 10:22 | Emergency (ER) | payer MEDICARE, MEDICAID ==
[~2021-02-05] VITALS: Ht 162.6 cm; Wt 109.7 kg
[~2021-02-05 10:22] MED LIST changes: -LOSARTAN 100 MG TAB PO ONE
[2021-02-05 12:28] LABS: MICROSCOPIC AUTO
[2021-02-05 14:31] VITALS: BP 134/84
--- NOTE | 2021-02-05 14:32 | NUR ---
PT REC'VD DISCHARGE INSTRUCTIONS AND EDUCATION. PT HAD NO FURTHER QUESTIONS.
== END 2021-02-05 15:02 | disposition home or self-care (01) ==
LOC: ED 12:47
DX: N30.00 Acute cystitis without hematuria (principal); I10 Essential (primary) hypertension; E11.9 Type 2 diabetes mellitus without complications; Z90.89 Acquired absence of other organs; Z90.710 Acquired absence of both cervix and uterus
CPT/HCPCS: 51702; 81001; 87086; 99284

== ENCOUNTER 2021-02-05 22:35 | Emergency (ER) | payer MEDICAID, MEDICARE ==
[~2021-02-05] VITALS: Ht 162.6 cm; Wt 110.9 kg
--- NOTE | 2021-02-05 22:38 | NUR ---
PT BIBA FOR A POSSIBLE DISLODGED URINARY CATHETER, PT STATES SHE FELT A POP AND THINKS HER CATHETER IS DISLODGED, CATHETER CURRENTLY DRAINING WELL, PT STATES IT WAS PUT IN TODAY FOR AN INFECTION THAT SHE IS TAKING ABX FOR, PT A/OX4, PROVIDER AT BEDSIDE TO DISCUSS POC
--- NOTE | 2021-02-05 23:23 | NUR ---
THIS RN FLUSHED PTS CATHETER, FLUSH PRODUCED A RELATIVELY LARGE CLOT, CATHETER CURRENTLY DRAINING PROPERLY, PT NAD, PT TOLERATED PROCEDURE WELL
[2021-02-06 00:01] VITALS: BP 157/84
== END 2021-02-06 00:03 | disposition home or self-care (01) ==
LOC: ED 23:00
DX: R33.8 Other retention of urine (principal); T83.091A Other mechanical complication of indwelling urethral catheter, initial encounter; Y82.9 Unspecified medical devices associated with adverse incidents; I10 Essential (primary) hypertension; E11.9 Type 2 diabetes mellitus without complications; Z85.3 Personal history of malignant neoplasm of breast
CPT/HCPCS: 51700; 99283; 99284